=== PATIENT | female | born 1935 | race Caucasian/White ===

== ENCOUNTER 2024-10-23 16:15 | Emergency (ER) | payer BC, MEDICAID ==
[~2024-10-23] VITALS: Ht 167.6 cm; Wt 63.6 kg
--- NOTE | 2024-10-23 16:39 | Physician Documentation ---
History of Present Illness ~ Stated Complaint: BEHAVIORAL ISSUES Time Seen by MD: 16:29 HPI 88-year-old female presents to the ED if from [facility] for concerns over a low SpO2. Is a known sleep apnea patient according to the staff at [facility] patient was being combative while they were attempting to get her S SpO2. They stated that her readings were in the 80s and low 90s This behavior is her baseline per her POA/daughter. Weeks ago the patient had gallbladder surgery and ended up in the ICU. Patient's daughter indicated that she lost her hearing at this time due to large amounts of the required Lasix. In addition,she has been very weak since then. Additionally the facility indicated that the patient has been having some hallucinations which was concerning. They did not report if they checked her urinalysis The POA indicates that the patient is a full code at this time Day of Onset: Oct 23, 2024 Review of Systems All Other Systems at this time: Reviewed and Negative ROS As stated above in the HPI, otherwise all systems are reviewed and negative. Physical Exam Physical Exam General: Alert, no apparent distress. HEENT: PERRL, EOMI, no injection, dry mucous membrane Respiratory: Lungs clear, no respiratory distress. Cardiovascular: Regular rate and rhythm, no murmurs. Gastrointestinal: Soft, nontender, nondistended. Bowels sounds present. Neurologic: Oriented x4. Psychiatric: Normal mood and affect. arousable Skin: Normal color, warm and dry. No edema, no ecchymosis. Progress Results/Orders Results/Orders Completed Orders - IKER SAVAGE Hydrocodone/Apap 10/325 ([place] 10/325mg (10/23/24 20:10) Medications Received in ER Medications (Trade) Dose Ordered Sig/Johanny Route PRN Reason Start Time Stop Time Status Last Admin Dose Admin ([place] 10/325mg tab) 2 tab ONCE ONCE PO 10/23/24 20:10 10/23/24 20:11 DC 10/23/24 20:26 2 TAB Vital Signs 10/23/24 10/23/24 10/23/24 10/23/24 16:29 16:46 19:00 20:00 Temp 98.3 98.2 Pulse 72 65 78 Resp 17 16 16 16 B/P (MAP) 113/50 113/47 (69) 142/80 (100) Pulse Ox 93 92 98 O2 Flow Rate 0 0 2.0 10/23/24 10/23/24 20:26 21:33 Pulse 80 Resp 16 16 B/P (MAP) 141/57 (85) Pulse Ox 97 O2 Flow Rate 2.0 Laboratory Tests Test 10/23/24 17:17 10/23/24 18:27 White Blood Count 10.1 Red Blood Count 3.13 L Hemoglobin 9.5 L Hematocrit 28.1 L Mean Corpuscular Volume 89.6 Mean Corpuscular Hemoglobin 30.3 Mean Corpuscular Hemoglobin Concent 33.8 Red Cell Distribution Width 16.5 H Platelet Count 388 Mean Platelet Volume 7.8 Neutrophils (%) (Auto) 82.3 H Lymphocytes (%) (Auto) 10.7 L Monocytes (%) (Auto) 4.9 Eosinophils (%) (Auto) 1.6 Basophils (%) (Auto) 0.5 Neutrophils # (Auto) 8.3 H Lymphocytes # (Auto) 1.1 Monocytes # (Auto) 0.5 Eosinophils # (Auto) 0.2 Basophils # (Auto) 0.1 CBC Comment Sodium Level 134 L Potassium Level 4.6 Chloride Level 97 L Carbon Dioxide Level 33.4 H Anion Gap 4 L Blood Urea Nitrogen 45 H Creatinine 0.80 Estimated GFR/1.73 m2 68 BUN/Creatinine Ratio 56.3 H Glucose Level 105 H Lactic Acid Level 0.9 Calcium Level 9.7 Pro-B-Type Natriuretic Peptide 408 Albumin 2.7 L Chemistry Comments Urine Specimen Description Non-specified Urine Color Yellow Urine Clarity Clear Urine pH 7.5 Urine Specific [place] <=1.005 Urine Protein Negative Urine Glucose (UA) Negative Urine Ketones Negative Urine Occult Blood Negative Urine Nitrite Negative Urine Bilirubin Negative Urine Urobilinogen 0.2 Urine Leukocyte Esterase Negative Volume Urine Centrifuged 10 ml Urine Comment Microbiology Date/Time Source Procedure Growth Status 10/23/24 17:53 Blood Hand Right Blood Culture - Preliminary NEGATIVE (LESS THAN 24 HOURS) Resulted Medical Decision Making Findings Patient continues to not to have any complaints. I suspect that she has a an unresolved UTI. according her daughter she did have a UTI a few weeks ago so she was wondering if maybe the UTI was never fully resolved. He was are within normal limits in the patient is behaving per her baseline. Expect that we can discharge the patient once we have the urinalysis Patient was signed out to me by just in [place] nurse practitioner pending uri nalysis. The urinalysis, chest x-ray and blood work were all within normal limits. The patient was now calm and relaxed. She was on oxygen and satting in the mid 90s. She was with a family member who is eager to take her back to [facility] as she has a surgical procedure for a decubitus ulcer debridement in the morning. This point I see no need to keep the patient here in the ER and we will discharge her back to her post acute facility Differential Dx:Considerations: Include: anxiety, asthma, bronchitis, cardiogenic shock, CHF, COPD, dysrhythmia, hypertension, accelerated, hypertension, essential, hypertension, malignant, hyperventilation, hyponatremia, myocardial infarction, panic attack, pneumonia, pneumonitis, pneumothorax, PSVT, pulmonary embolism, respiratory distress, respiratory failure, sinusitis, upper resp. infection, other Departure Disposition: 01 HOME / SELF CARE / HOMELESS Impression: Primary Impression: Agitation Condition: Stable Discharge Instructions: General Discharge Instructions Additional Instructions: The blood work, urinalysis and chest x-ray did not show any concerning findings today. You will be discharged back to [facility] so you can have your surgical procedure in the morning. Referrals: NO PRIMARY CARE PROVIDER (PCP) Signature Scribe Signature: No scribe Attestation: The note accurately reflects work and decisions made by me.Iker LUNA 10/23/24 21:36 JUDY REED NP Oct 23, 2024 16:39 IKER SAVAGE Oct 23, 2024 21:36
--- NOTE | 2024-10-23 17:01 | RADIOLOGY REPORT ---
CHEST RADIOGRAPH Indication: sob Technique: Single frontal view of the chest was obtained Comparison: None FINDINGS: Lines and Tubes: None Lungs: No focal consolidation. Pleura: No effusion. No pneumothorax. Cardiomediastinal contours: Unremarkable Bones: No acute osseous abnormality. IMPRESSION: 1. No acute cardiopulmonary disease.
[2024-10-23 17:49] LABS: BASOPHILS # (AUTO) 0.1 X10'3 (0-0.2); BASOPHILS % (AUTO) 0.5 % (0-1); EOSINOPHILS # (AUTO) 0.2 X10'3 (0-0.9); EOSINOPHILS % (AUTO) 1.6 % (0-6); HEMATOCRIT 28.1 % (35.0-45.0); HEMOGLOBIN 9.5 g/dl (12.0-16.0); LYMPHOCYTES # (AUTO) 1.1 X10'3 (1.1-4.8); LYMPHOCYTES % (AUTO) 10.7 % (21-51); MEAN CORPUSCULAR HEMOGLOBIN 30.3 PG (27.0-31.0); MEAN CORPUSCULAR HGB CONC 33.8 g/dL (33.0-36.5); MEAN CORPUSCULAR VOLUME 89.6 FL (78-98); MEAN PLATELET VOLUME 7.8 FL (7.4-10.4); MONOCYTES # (AUTO) 0.5 X10'3 (0-0.9); MONOCYTES % (AUTO) 4.9 % (2-12); NEUTROPHILS # (AUTO) 8.3 X10'3 (1.8-7.7); NEUTROPHILS % (AUTO) 82.3 % (42-75); PLATELET COUNT 388 X10'3 (140-440); RED BLOOD COUNT 3.13 X10'6 (4.20-5.60); RED CELL DISTRIBUTION WIDTH 16.5 % (11.5-14.5); WHITE BLOOD COUNT 10.1 X10'3 (4.5-11.0)
[2024-10-23 18:07] LABS: ALBUMIN 2.7 G/DL (3.4-5.0); ANION GAP 4 (8-16); BLOOD UREA NITROGEN 45 MG/DL (7-18); BUN/CREATININE RATIO 56.3 (10.0-20.0); CALCIUM 9.7 MG/DL (8.5-10.1); CHLORIDE 97 MMOL/L (99-107); GLUCOSE 105 MG/DL (70-104); POTASSIUM 4.6 MMOL/L (3.5-5.1); PRO BRAIN NATRIURETIC PEPTIDE 408 PG/ML (0-450); SODIUM 134 MMOL/L (135-145); TOTAL CARBON DIOXIDE 33.4 MMOL/L (24-32); eCRCL 46 ML/MIN; eGFR 68 ML/MIN
[2024-10-23 18:46] LABS: BILIRUBIN,URINE NEGATIVE (Neg); CLARITY,URINE CLEAR (Clear); COLOR,URINE YELLOW (Yellow); GLUCOSE, URINE NEGATIVE (Neg); KETONES,URINE NEGATIVE (Neg); LEUKOCYTE ESTERASE ,URINE NEGATIVE (Neg); NITRITES, URINE NEGATIVE (Neg); OCCULT BLOOD,URINE NEGATIVE (Neg); PH,URINE 7.5 (4.8-8.0); PROTEIN,URINE NEGATIVE (Neg); UROBILINOGEN,URINE 0.2 E.U/dL (0.2-1.0)
[2024-10-23 18:59] LABS: UA COLLECTION TYPE NON-SPECIFIED
[2024-10-23] MEDS: HYDROcodone/acetaminophen 10/325mg tab PO ONE (20:26)
[2024-10-23 23:17] VITALS: BP 152/80; PULSE 80; RESP 18; TEMP 97.6; O2SAT 99
== END 2024-10-23 23:23 | disposition home or self-care (01) ==
LOC: ER 16:16
DX: R45.1 Restlessness and agitation (principal); G47.30 Sleep apnea, unspecified
CPT/HCPCS: 36415; 71045; 80048; 81003; 83605; 83880; 85025; 87040; 99284; 99285; A4615; A6213; C1758

== ENCOUNTER 2025-06-02 19:09 | Outpatient (CLI) | payer MEDICARE, MEDICAID ==
[~2025-06-02 19:09] MED LIST: ALPR0.5T9 PO; AMLO10TA13 PO; ENOX40DI11 SQ; FAMO20TA8 PO; FERR500P12; HYDR-3973 PO; INSU100I61 SQ; INSU100V9 SQ; LACT-193; LEVO125T8 PO; LORA10CA PO; LOSA100T58 PO; METO25TA6 PO; PRE5T PO; SENN-36 PO
[2025-06-02 19:59] LABS: % IRON SATURATION 12.0 % (11-46)
== END 2025-06-02 23:59 | disposition home or self-care (01) ==
LOC: LAB SPEC 19:09
PROVIDERS: ATTEND Family Medicine
DX: D50.9 Iron deficiency anemia, unspecified (principal); D62 Acute posthemorrhagic anemia; E87.6 Hypokalemia
CPT/HCPCS: 36415; 83540; 83550; 84132